=== PATIENT | female | born 1950 | race Two or more races ===

== ENCOUNTER 2020-04-02 08:28 | Outpatient (CLI) | payer OTHER | END 2020-04-02 08:37 | disposition home or self-care (01) | LOC: SONOGRAMA 08:28 | PROVIDERS: ATTEND Specialist | DX: K80.80 Other cholelithiasis without obstruction (principal); K82.8 Other specified diseases of gallbladder ==

== ENCOUNTER 2020-04-30 04:45 | Day surgery (SDC) | payer OTHER ==
[~2020-04-30 04:45] MED LIST: ALTACE1.25 MG; FORTAMET500 MG; GLIMEPIRIDE4 M1
== END 2020-05-01 08:00 | disposition home or self-care (01) ==
LOC: CIR.AMB 04:45 → O/R 12:43 → SURG 12:43 → O/R 14:35 → CIR.AMB 05-01 08:00 → SURG 05-01 11:30 → O/R 05-01 11:30
PROVIDERS: ATTEND Specialist
DX: K80.10 Calculus of gallbladder with chronic cholecystitis without obstruction (principal); Z20.828 Contact with and (suspected) exposure to other viral communicable diseases

== ENCOUNTER 2020-10-23 08:04 | Outpatient (CLI) | payer OTHER | END 2020-10-23 08:18 | disposition home or self-care (01) | LOC: MAMO-SONO 08:04 | DX: Z12.31 Encounter for screening mammogram for malignant neoplasm of breast (principal); Z87.898 Personal history of other specified conditions; N64.59 Other signs and symptoms in breast ==